=== PATIENT | female | born 1980 | race Caucasian/White ===

== ENCOUNTER 2019-12-01 06:31 | Day surgery (SDC) | payer OTHER ==
[2019-11-30 10:24] LABS: HEMATOCRIT 41.8 % (36.0-48.0); HEMOGLOBIN 14.1 g/dL (12-16); MCH 31.4 pg (26.0-34.0); MCHC 33.7 g/dL (31.0-37.0); MCV 93.1 fL (80.0-100.0); MEAN PLATELET VOLUME 9.1 fL (7.4-10.4); RBC 4.49 10x6/uL (4.00-5.40); RDW 13.1 % (11.5-14.5); WBC 6.3 10x3/uL (4.8-10.8)
[~2019-12-01] VITALS: Ht 167.6 cm; Wt 96.2 kg
--- NOTE | ~2019-12-01 | OP ---
PATIENT NAME: SHIVA WOMACK MEDICAL RECORD: [id number] :82 LOCATION:D.OPS ADMISSION DATE: SURGEON: RACHAEL CARLISLE MD DATE OF OPERATION: 12/01/2019 PREOPERATIVE DIAGNOSIS: Carpal tunnel syndrome of the left wrist. POSTOPERATIVE DIAGNOSIS: Carpal tunnel syndrome of the left wrist. PROCEDURE: Left carpal tunnel release. SURGEON: Rachael Carlisle MD ROUTER OPERATOR: MARIANNE Shaw INTRAOPERATIVE COMPLICATIONS: None. SUMMARY OF PATHOLOGIC FINDINGS: The patient did have a tight transverse carpal ligament consistent with the preoperative diagnosis. OPERATIVE SUMMARY IN DETAIL: After obtaining the appropriate preoperative orthopedic surgery consent as well as anesthetic consultation, evaluation and clearance, the patient was brought to the operating room and placed on the operating table in supine position. After adequate general laryngeal mask airway was administered, tourniquet was placed about the proximal aspect of the left upper extremity. Left upper extremity was then prepped and draped in routine sterile fashion. At this point, the appropriate timeout was done and taken by all. The arm was elevated and the tourniquet was insufflated to 250 mmHg. Midline incision made in line with the fourth metacarpal. This incision was taken down to the level of transverse carpal ligament was identified. A small incision was done to identify the median nerve. It was then protected and under direct visualization, the entire median nerve was incised using the Ekaterina light knife. Having completed this, wound was irrigated and closed by Ezio Connelly with local 0.25% Marcaine. Sterile dressings were applied. Tourniquet was deflated. The patient was awakened and taken to recovery room in stable condition. All final needle and sponge counts were correct. TRANSINT:[id number] Voice Confirmation ID: [id number] DOCUMENT ID: [id number] RACHAEL CARLISLE MD CC: [id number] DICTATION DATE: 12/05/19 1223 COLOR TESTER: 12/05/19 2105 [facility] 12/01/19 [id number] [place] [address]
[2019-12-01 06:53] VITALS: BP 122/75; Ht 167.6 cm; Wt 96.2 kg
[2019-12-01] MEDS ORDERED: HYDROCODON-ACE1 EA10 PO (10:24)
--- NOTE | 2019-12-01 13:40 | NUR ---
1030 IV REMOVED AND PRESSURE HELD. INSTRUCTIONS GIVEN
== END 2019-12-01 11:10 | disposition home or self-care (01) ==
LOC: D.OPS 06:31 → D.PAN 08:15 → D.OPS 08:30 → D.PAN 11:45 → D.OPS 12:10
PROVIDERS: Anesthesiology; ATTEND Orthopaedic Surgery
DX: G56.01 Carpal tunnel syndrome, right upper limb (principal)